=== PATIENT | female | born 1960 | race Caucasian/White ===

== ENCOUNTER 2018-07-24 12:13 | Outpatient (CLI) | payer OTHER | END 2018-07-24 12:19 | disposition home or self-care (01) | LOC: RAD 12:13 | DX: Z00.8 Encounter for other general examination (principal) ==

== ENCOUNTER 2022-01-09 07:34 | Outpatient (CLI) | payer OTHER | END 2022-01-09 07:43 | disposition home or self-care (01) | LOC: TOM 07:34 | PROVIDERS: ATTEND General Practice | DX: R10.9 Unspecified abdominal pain (principal); R19.01 Right upper quadrant abdominal swelling, mass and lump ==

== ENCOUNTER 2022-01-21 07:56 | Outpatient (CLI) | payer OTHER | END 2022-01-21 08:43 | disposition home or self-care (01) | LOC: MAMO-SONO 07:56 | PROVIDERS: ATTEND General Practice | DX: R19.00 Intra-abdominal and pelvic swelling, mass and lump, unspecified site (principal); C55 Malignant neoplasm of uterus, part unspecified; C80.1 Malignant (primary) neoplasm, unspecified; C50.919 Malignant neoplasm of unspecified site of unspecified female breast ==

== ENCOUNTER 2022-02-21 12:35 | Outpatient (CLI) | payer OTHER | END 2022-02-21 13:07 | disposition home or self-care (01) | LOC: LAB 12:35 | DX: R18.8 Other ascites (principal) ==

== ENCOUNTER 2022-02-24 08:03 | Outpatient (CLI) | payer OTHER | END 2022-02-24 08:57 | disposition home or self-care (01) | LOC: RAD 08:03 | DX: R19.00 Intra-abdominal and pelvic swelling, mass and lump, unspecified site (principal); R18.8 Other ascites ==

== ENCOUNTER 2022-03-17 08:16 | Outpatient (CLI) | payer OTHER | END 2022-03-17 08:17 | disposition home or self-care (01) | LOC: LAB 08:16 | DX: D64.9 Anemia, unspecified (principal) ==

== ENCOUNTER 2022-03-26 11:14 | Outpatient (CLI) | payer OTHER | END 2022-03-26 11:17 | disposition home or self-care (01) | LOC: LAB 11:14 | PROVIDERS: ATTEND Specialist | DX: C54.1 Malignant neoplasm of endometrium (principal); R11.2 Nausea with vomiting, unspecified; D70.1 Agranulocytosis secondary to cancer chemotherapy; D50.0 Iron deficiency anemia secondary to blood loss (chronic); D68.8 Other specified coagulation defects; Z01.818 Encounter for other preprocedural examination; N13.30 Unspecified hydronephrosis ==

== ENCOUNTER 2022-04-09 09:41 | Outpatient (CLI) | payer OTHER | END 2022-04-09 09:42 | disposition home or self-care (01) | LOC: LAB 09:41 | PROVIDERS: ATTEND Specialist | DX: D50.0 Iron deficiency anemia secondary to blood loss (chronic) (principal); C54.1 Malignant neoplasm of endometrium; R11.2 Nausea with vomiting, unspecified; D70.1 Agranulocytosis secondary to cancer chemotherapy; C37 Malignant neoplasm of thymus; D64.81 Anemia due to antineoplastic chemotherapy; D64.9 Anemia, unspecified; Z51.11 Encounter for antineoplastic chemotherapy ==

== ENCOUNTER 2022-05-05 15:46 | Outpatient (CLI) | payer OTHER | END 2022-05-05 15:55 | disposition home or self-care (01) | LOC: LAB 15:46 | PROVIDERS: ATTEND Specialist | DX: D50.0 Iron deficiency anemia secondary to blood loss (chronic) (principal); C54.1 Malignant neoplasm of endometrium; R11.2 Nausea with vomiting, unspecified; D70.1 Agranulocytosis secondary to cancer chemotherapy; C37 Malignant neoplasm of thymus; D64.81 Anemia due to antineoplastic chemotherapy ==

== ENCOUNTER 2022-05-17 10:52 | Outpatient (CLI) | payer OTHER | END 2022-05-17 11:01 | disposition home or self-care (01) | LOC: LAB 10:52 | PROVIDERS: ATTEND Specialist | DX: D50.0 Iron deficiency anemia secondary to blood loss (chronic) (principal); C54.1 Malignant neoplasm of endometrium; R11.2 Nausea with vomiting, unspecified; D70.1 Agranulocytosis secondary to cancer chemotherapy; C37 Malignant neoplasm of thymus; D64.81 Anemia due to antineoplastic chemotherapy ==

== ENCOUNTER → 2022-06-09 09:30 | Outpatient (CLI) | payer OTHER | END | disposition home or self-care (01) | LOC: LAB 09:30 | PROVIDERS: ATTEND Specialist | DX: D50.0 Iron deficiency anemia secondary to blood loss (chronic) (principal); C54.1 Malignant neoplasm of endometrium; R11.2 Nausea with vomiting, unspecified; D70.1 Agranulocytosis secondary to cancer chemotherapy; C37 Malignant neoplasm of thymus; D64.81 Anemia due to antineoplastic chemotherapy; R07.1 Chest pain on breathing ==

== ENCOUNTER 2022-06-11 07:34 | Outpatient (CLI) | payer OTHER ==
[2022-06-11] MEDS ORDERED: TENORMIN25 MG (09:59)
[2022-06-11] MEDS ORDERED: ENDOCET 5-3251 EACH PO (10:00)
[2022-06-11] MEDS ORDERED: XANAX XR3 MG PO (10:00)
[2022-06-11] MEDS ORDERED: ZOFRAN8 MG PO (10:01)
[2022-06-11] MEDS ORDERED: VAZALORE81 MG PO (10:02)
[2022-06-11] MEDS ORDERED: IRON236 MG PO (10:02)
== END 2022-06-11 07:35 | disposition home or self-care (01) ==
LOC: TOM 07:34
PROVIDERS: ATTEND Specialist
DX: D50.0 Iron deficiency anemia secondary to blood loss (chronic) (principal); C54.1 Malignant neoplasm of endometrium; R11.2 Nausea with vomiting, unspecified; D70.1 Agranulocytosis secondary to cancer chemotherapy; C37 Malignant neoplasm of thymus; D64.81 Anemia due to antineoplastic chemotherapy; R07.1 Chest pain on breathing

== ENCOUNTER 2022-06-11 09:42 | Inpatient (IN) | payer OTHER ==
[~2022-06-11] VITALS: Ht 154.9 cm; Wt 89.4 kg
[2022-06-11] MEDS ORDERED: TENORMIN25 MG (09:59)
[2022-06-11] MEDS ORDERED: ENDOCET 5-3251 EACH PO (10:00)
[2022-06-11] MEDS ORDERED: XANAX XR3 MG PO (10:00)
[2022-06-11] MEDS ORDERED: ZOFRAN8 MG PO (10:01)
[2022-06-11] MEDS ORDERED: VAZALORE81 MG PO (10:02)
[2022-06-11] MEDS ORDERED: IRON236 MG PO (10:02)
--- NOTE | 2022-06-11 10:02 | NUR ---
SE RECIBE A PACIENTE ALERTA Y ORIENTADA POR 3. PACIENTE REFIERE TENER HEMOGLOBINA EN 7.1. REFIERE TENER CANCER EN EL UTERO. RASHEED HEMATOLOGA ES DRA. KIMBERLI RILEY.
--- NOTE | 2022-06-11 16:52 | NUR ---
1635 SE CONTACTA A [facility] PARA CONOCER ESTATUS DE TUBOS PILOTOS REFIERE TUBOS SE ENCUENTRAN EN LABORATORIO. 1636 SE CONTACTA A [facility] PARA CONOCER ESTATUS DE PRBC'S , PERSONAL REFIERE NO HABIAN SIDO REQUIZADAS. SE REQUIZAN 3 UNIDADES DE PRBC'S PARA TRANSFUNDIR STAT A .
== END 2022-06-12 22:19 | disposition home or self-care (01) | DRG 756 ==
LOC: ER 09:42 → SEC-K 16:53 → MEDJ 16:53 → SURH 23:09
PROVIDERS: ADMIT Internal Medicine; ATTEND Internal Medicine
PROC: 30233N1 Transfusion of Nonautologous Red Blood Cells into Peripheral Vein, Percutaneous Approach (ICD-10-PCS; principal; 2022-06-11)
DX: C53.8 Malignant neoplasm of overlapping sites of cervix uteri (principal); D63.0 Anemia in neoplastic disease; Z20.822 Contact with and (suspected) exposure to COVID-19

== ENCOUNTER 2022-06-30 08:30 | Outpatient (CLI) | payer OTHER ==
[~2022-06-30 08:30] MED LIST: ENDOCET 5-3251 EACH PO; IRON236 MG PO; TENORMIN25 MG; VAZALORE81 MG PO; XANAX XR3 MG PO; ZOFRAN8 MG PO
== END 2022-06-30 11:38 | disposition home or self-care (01) ==
LOC: LAB 08:30
PROVIDERS: ATTEND General Practice
DX: D50.0 Iron deficiency anemia secondary to blood loss (chronic) (principal); C54.1 Malignant neoplasm of endometrium; R11.2 Nausea with vomiting, unspecified; D70.1 Agranulocytosis secondary to cancer chemotherapy; C37 Malignant neoplasm of thymus; D64.81 Anemia due to antineoplastic chemotherapy; R07.1 Chest pain on breathing; R10.84 Generalized abdominal pain; D63.0 Anemia in neoplastic disease

== ENCOUNTER → 2022-07-01 | Emergency (ER) | payer OTHER | END | disposition home or self-care (01) | LOC: ER 18:30 | DX: R10.32 Left lower quadrant pain (principal) ==

== ENCOUNTER 2022-07-14 14:41 | Outpatient (CLI) | payer OTHER | END 2022-07-14 14:50 | disposition home or self-care (01) | LOC: LAB 14:41 | PROVIDERS: ATTEND Radiology Diagnostic Radiology | DX: D50.0 Iron deficiency anemia secondary to blood loss (chronic) (principal) ==

== ENCOUNTER 2022-07-18 07:43 | Outpatient (CLI) | payer OTHER | END 2022-07-18 07:56 | disposition home or self-care (01) | LOC: TOM 07:43 | PROVIDERS: ATTEND Specialist | DX: D50.0 Iron deficiency anemia secondary to blood loss (chronic) (principal); R11.2 Nausea with vomiting, unspecified; D70.1 Agranulocytosis secondary to cancer chemotherapy; D64.81 Anemia due to antineoplastic chemotherapy; R07.1 Chest pain on breathing; R10.84 Generalized abdominal pain ==

== ENCOUNTER 2022-07-30 07:39 | Outpatient (CLI) | payer OTHER | END 2022-07-30 07:40 | disposition home or self-care (01) | LOC: LAB 07:39 | PROVIDERS: ATTEND Specialist | DX: C54.1 Malignant neoplasm of endometrium (principal); D50.0 Iron deficiency anemia secondary to blood loss (chronic); R11.2 Nausea with vomiting, unspecified; D70.1 Agranulocytosis secondary to cancer chemotherapy; C37 Malignant neoplasm of thymus; D64.81 Anemia due to antineoplastic chemotherapy; R07.1 Chest pain on breathing; R10.84 Generalized abdominal pain ==

== ENCOUNTER 2022-08-20 07:42 | Outpatient (CLI) | payer OTHER | END 2022-08-20 07:51 | disposition home or self-care (01) | LOC: LAB 07:42 | PROVIDERS: ATTEND Specialist | DX: D50.0 Iron deficiency anemia secondary to blood loss (chronic) (principal); C54.1 Malignant neoplasm of endometrium; R11.2 Nausea with vomiting, unspecified; D70.1 Agranulocytosis secondary to cancer chemotherapy; C37 Malignant neoplasm of thymus; D64.81 Anemia due to antineoplastic chemotherapy; R07.1 Chest pain on breathing; R10.84 Generalized abdominal pain ==